=== PATIENT | female | born 1990 ===

== ENCOUNTER 2017-03-31 09:36 | Emergency (ER) | payer SELFPAY ==
--- NOTE | 2017-04-23 15:00 | ER ---
ADMIT: 03/31/2017 RM/LOC: ER [facility] MR#: [id number] [id number] BALJIT CONKLIN [address] [place] [address] Emergency Room Report SEX: F AGE: 27 : 1990 DATE: 03/31/2017 CHIEF COMPLAINT: Vaginal bleeding. HISTORY OF PRESENT ILLNESS: This is a 27-year-old female, who presents with vaginal bleeding since Wednesday. The patient states she has a known confirmed at home with a urine test. States on , she had some mild spotting, was not too concerned about it. This past Wednesday, she had increased vaginal bleeding with some lower abdominal pain. Admits to some low back pain as well. Last menstrual period was 03/01/2017. She is . She is currently not actively seeking any care. She is not using any vitamins. She continues to smoke an eighth pack of cigarette per day. Admits to using methamphetamine 2 days prior to today's visit. Denies any urinary frequency or burning or vaginal discharge. No fevers chills, nausea, vomiting, shortness of breath, or cough. COURSE IN THE EMERGENCY ROOM: The patient seen and examined. She is afebrile and nontoxic. I did do a pelvic exam on her today, shows a closed cervix with evidence of bleeding with dried blood about the vaginal introitus. No tenderness with bimanual exam. No masses found. Did get a transvaginal ultrasound on her today which shows a gestational sac, possibly 6 weeks and 2 days based on size. Too early to identify tones. PROCEDURE NOTE: This is an I and D. This is a 1 cm erythematous pointing abscess located on the right inner thigh. I anesthetized with 1 mL lidocaine with epinephrine to raise a wheal. After anesthesia was achieved, it was incised with a 10 blade and drained using suction. LABORATORY DATA: White count 12.2, hemoglobin 13.4, hematocrit 40.1, platelets 345. Sodium 139, potassium 3.5, glucose 96, and creatinine 0.8. UA negative for any acute infection, does show blood. I did type and screen her, shows O positive. IMPRESSION: 1. Threatened . 2. Vaginal bleeding. 3. First trimester . 4. Methamphetamine use. 5. Tobacco abuse. ADMIT: 03/31/2017 RM/LOC: [facility] MR#: [id number] [id number] BALJIT CONKLIN [address] [place] [address] Emergency Room Report SEX: F AGE: 27 : 1990 DISPOSITION: I did phone Dr. Mendez's office. Dr. Brumfield was taking call for the group today. He agreed that this was likely too early to confirm any sort of heart activity. Did recommend a followup beta HCG draw 2 days after today's visit. I did get a urine drug screen on her positive for amphetamines. I did also get a beta HCG which was 5260 today. The patient was instructed to stop using methamphetamine and smoking as these do have detrimental effects on the and fetus. She should follow up with Dr. Brenda Mendez in 2 days to repeat the blood work and ultrasound. I also did find an abscess on her which was drained today, she is to monitor for any increased redness and keep it covered. The patient's questions were sought and answered to the best of my ability and to the patient's satisfaction. She was discharged to follow up with Dr. Mendez in stable condition. RACHAEL Manzano / Terry Flores MD / darin JOB #: [id number] CC: Terry Flores MD, Attending Physician Reinaldo Malave MD, Family Physician
== END 2017-03-31 12:45 | disposition home or self-care (01) ==
LOC: ER 09:36
DX: O20.9 Hemorrhage in early pregnancy, unspecified (principal); Z90.89 Acquired absence of other organs